=== PATIENT | female | born 1990 | race Caucasian/White ===

== ENCOUNTER 2020-01-13 21:07 | Emergency (ER) | payer OTHER ==
[~2020-01-13] VITALS: Ht 157.5 cm; Wt 65.8 kg
[2020-01-13 21:07] VITALS: BP 196/107
--- NOTE | 2020-01-13 21:07 | NUR ---
Patient BIB [facility] for pre-booking medical screening evaluation, transferred to chair B. RN evaluating patient at bedside.
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
--- NOTE | 2020-01-13 21:24 | NUR ---
PT TAKEN TO CHAIR B.
--- NOTE | 2020-01-13 22:15 | NUR ---
Dr. Gardiner is evaluating the patient at bedside.
[2020-01-13] MEDS ORDERED: LORazepam 1 MG TAB PO ONE (22:20)
[2020-01-13] MEDS ORDERED: ACETAMINOPHEN 325 MG TAB PO ONE (22:20)
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
[2020-01-13 22:36] VITALS: BP 150/107
== END 2020-01-13 22:33 ==
LOC: MED 21:07
DX: F41.9 Anxiety disorder, unspecified (principal); I10 Essential (primary) hypertension; F32.9 Major depressive disorder, single episode, unspecified; Z91.040 Latex allergy status; Z02.89 Encounter for other administrative examinations
CPT/HCPCS: 99283

== ENCOUNTER 2020-03-05 13:25 | Emergency (ER) | payer OTHER ==
[~2020-03-05] VITALS: Ht 157.5 cm; Wt 72.6 kg
[2020-03-05 13:29] VITALS: BP 160/105
--- NOTE | 2020-03-05 13:31 | NUR ---
Patient ambulated to bed 11. RN evaluating the patient at bedside.
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
--- NOTE | 2020-03-05 13:52 | NUR ---
Jayesh MOTLEY notified
--- NOTE | 2020-03-05 14:49 | NUR ---
ANJUM GLASS AT BEDSIDE
--- NOTE | 2020-03-05 15:00 | NUR ---
pt yennifer---stated she will go to [facility] since jurisdictionn belong to [facility] and not [facility]. Encouraged to return for any Medical Emergencies.
[2020-03-05] MEDS ORDERED: ACETAMINOPHEN EXTRA STRENGTH 500 MG TAB PO ONE (15:10)
[2020-03-05] MEDS ORDERED: KETOROLAC 30 MG/ML VIAL IM ONE (15:10)
--- NOTE | 2020-03-05 15:43 | NUR ---
[place] [employer] notified
== END 2020-03-05 15:00 | disposition left against medical advice (07) ==
LOC: MED 13:25
DX: S01.512A Laceration without foreign body of oral cavity, initial encounter (principal); S09.90XA Unspecified injury of head, initial encounter; R51 Headache; R42 Dizziness and giddiness; I10 Essential (primary) hypertension; Z91.040 Latex allergy status; Y04.2XXA Assault by strike against or bumped into by another person, initial encounter; Y93.89 Activity, other specified; Y92.89 Other specified places as the place of occurrence of the external cause; Y99.8 Other external cause status
CPT/HCPCS: 70450; 70486; 72125; 81025; 99285

== ENCOUNTER 2020-05-21 07:05 | Emergency (ER) | payer OTHER ==
[~2020-05-21] VITALS: Ht 157.5 cm; Wt 78.9 kg
[2020-05-21 07:21] VITALS: BP 110/84
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
--- NOTE | 2020-05-21 08:03 | NUR ---
COVID TOMMY SWAB SENT TO LAB.
[2020-05-21 09:16] VITALS: BP 110/84
--- NOTE | 2020-05-21 09:16 | NUR ---
Patient discharged with v/s stable. Written and verbal after care instructions given and explained. Patient verbalized understanding. Ambulatory with steady gait. All questions addressed prior to discharge. Advised to follow up with PMD.
== END 2020-05-21 09:16 | disposition home or self-care (01) ==
LOC: MED 07:05
DX: O26.891 Other specified pregnancy related conditions, first trimester (principal); B34.9 Viral infection, unspecified; I10 Essential (primary) hypertension; Z3A.08 8 weeks gestation of pregnancy; Z91.040 Latex allergy status
CPT/HCPCS: 71045; 99284